=== PATIENT | male | born 1950 | race Caucasian/White ===

== ENCOUNTER → 2019-01-25 19:03 | Outpatient (REF) | payer MEDICARE, SELFPAY ==
[2019-01-25 19:31] LABS: Add Manual Diff / Slide Review NO; Basophils Absolute Auto 100 /uL (0-100); Basophils Percent Auto 1.2 % (0-2); Eosinophils Absolute Auto 200 /uL (0-450); Hematocrit 49.8 % (41-53); Hemoglobin 17.1 g/dL (13.5-17.5); Lymphocytes Absolute Auto 1900 /uL (1100-4500); Lymphocytes Percent Auto 27.1 % (25-40); Mean Corpuscular HGB Conc 34.4 % (30-36); Mean Corpuscular Volume 93.2 fL (80-100); Monocytes Absolute Auto 500 /uL (0-900); Monocytes Percent Auto 7.5 % (3-14); Neutrophils Absolute Auto 4400 /uL (1500-7000); Neutrophils Percent Auto 61.2 % (50-75); Platelet Count 195 X10^3/uL (150-400); Red Blood Cell Count 5.35 X10^6/uL (4.5-5.9); Red Cell Distribution Width 13.1 % (11.6-14.8); White Blood Cell Count 7.1 X10^3/uL (4.5-11.0)
[2019-01-25 19:35] LABS: Alanine Aminotransferase 84 IU/L (21-72); Albumin 4.3 g/dL (3.5-5.0); Albumin Globulin Ratio 1.6 (1.0-2.8); Alkaline Phosphatase 55 U/L (38-126); Aspartate Aminotransferase 55 IU/L (17-59); Bilirubin Total 0.8 mg/dL (0.2-1.3); Blood Urea Nitrogen 24 mg/dL (9-20); Calcium 9.5 mg/dL (8.4-10.2); Carbon Dioxide 30 mmol/L (22-32); Chloride 100 mmol/L (98-107); Cholesterol 158 mg/dL (140-199); Estimated Glomerular Filt Rate > 60.0 mL/min (>60); Globulin 2.7 g/dL (1.7-4.1); Glucose 101 mg/dL (80-110); HDL Cholesterol 36 mg/dL (40-60); HEMOLYSIS < 15 (0-50); LDL Cholesterol Calculated 84 mg/dL (<100); Potassium 4.5 mmol/L (3.4-5.1); Sodium 139 mmol/L (137-145); Triglycerides 189 mg/dL (35-150)
[2019-01-25 20:05] LABS: Thyroid Stimulating Hormone 2.75 uIU/mL (0.47-4.68)
[2019-01-25 20:23] LABS: Vitamin B12 390 pg/mL (239-931)
== END ==
LOC: LAB 19:03
PROVIDERS: Visit Provider Family Medicine Geriatric Medicine
DX: I50.9 Heart failure, unspecified (principal); M10.9 Gout, unspecified; R53.83 Other fatigue; E78.5 Hyperlipidemia, unspecified; Z79.899 Other long term (current) drug therapy
CPT/HCPCS: 36415; 80053; 80061; 82607; 84443; 84550; 85025

== ENCOUNTER → 2019-01-27 12:43 | Outpatient (CLI) | payer MEDICARE, SELFPAY ==
--- NOTE | 2019-01-27 | DI.US.S_ITS ---
PROCEDURE: US ARTERIAL DUPLEX LE BI INDICATIONS: ABSENT PULSES TECHNIQUE: Color and pulse Doppler interrogation was performed of both lower extremity arterial systems, with image documentation. COMPARISON: None. FINDINGS: Right lower extremity: Common femoral artery: 109 cm/s, with triphasic flow Deep femoral artery: 42 cm/sec, with triphasic flow. Proximal superficial femoral artery: 81 cm/sec, with triphasic flow. Mid superficial femoral artery: 93 cm/sec, with triphasic flow. Distal superficial femoral artery: 79 cm/sec, with triphasic flow. Popliteal artery: 78 cm/sec, with triphasic flow. Posterior tibial artery: 119 cm/sec, with triphasic flow. Anterior tibial artery/dorsalis pedis: 55 cm/sec, with triphasic flow. Gomez-scale imaging description: Widely patent vessels Left lower extremity: Common femoral artery: 100 cm/sec, with triphasic flow. Deep femoral artery: 34 cm/sec, with biphasic flow. Proximal superficial femoral artery: 91 cm/sec, with triphasic flow. Mid superficial femoral artery: 90 cm/sec, with triphasic flow. Distal superficial femoral artery: 74 cm/sec, with triphasic flow. Popliteal artery: 67 cm/sec, with triphasic flow. Posterior tibial artery: 104 cm/sec, with triphasic flow. Anterior tibial artery/dorsalis pedis: 61 cm/sec, with triphasic flow. Gomez-scale imaging description: Widely patent vessels IMPRESSION: 1. No evidence of inflow disease, as evidenced by triphasic waveforms. 2. Wide patency of the arterial runoff from the inguinal ligaments to the ankles, with at least 2 vessel runoff present. Dictated by: Arturo Sewell M.D. on 01/27/2019 at 15:04 Approved by: Arturo Sewell M.D. on 01/27/2019 at 15:24
== END ==
PROVIDERS: Visit Provider Family Medicine Geriatric Medicine
DX: R60.0 Localized edema (principal); I50.9 Heart failure, unspecified; M79.672 Pain in left foot; M79.671 Pain in right foot
CPT/HCPCS: 93925

== ENCOUNTER 2019-04-23 01:29 | Emergency (ER) | payer MEDICARE, SELFPAY ==
[2019-04-23 01:36] VITALS: BP 110/82; PULSE 64; RESP 22; TEMP 36.4; O2SAT 97; BMI 34.4
--- NOTE | 2019-04-23 01:39 | DI.RAD.S_ITS ---
PROCEDURE: XR CHEST 2V INDICATIONS: shortness of breath TECHNIQUE: 2 views of the chest were acquired. COMPARISON: [facility], , CHEST 2 VIEW, 03/21/2011, 10:27. FINDINGS: Surgical changes and devices: None. Lungs and pleura: There is cephalization of the pulmonary vasculature and increased interstitial prominence. No pleural effusions or pneumothorax. Mediastinum: Mediastinal contours are normal. Heart size is normal. Bones and chest wall: No suspicious bony abnormalities. Soft tissues appear unremarkable. IMPRESSION: Acute CHF. Dictated by: Dawn Altamirano MD, PhD on 04/23/2019 at 8:52 Approved by: Dawn Altamirano MD, PhD on 04/23/2019 at 8:53
[2019-04-23 01:52] LABS: Add Manual Diff / Slide Review NO; Basophils Absolute Auto 200 /uL (0-100); Basophils Percent Auto 1.6 % (0-2); Eosinophils Absolute Auto 100 /uL (0-450); Eosinophils Percent Auto 1.4 % (2-4); Hemoglobin 16.5 g/dL (13.5-17.5); Lymphocytes Absolute Auto 3400 /uL (1100-4500); Lymphocytes Percent Auto 31.8 % (25-40); Mean Corpuscular HGB Conc 34.5 % (30-36); Mean Corpuscular Hemoglobin 32.7 PG (26-34); Mean Corpuscular Volume 94.7 fL (80-100); Monocytes Absolute Auto 800 /uL (0-900); Monocytes Percent Auto 7.3 % (3-14); Neutrophils Absolute Auto 6100 /uL (1500-7000); Neutrophils Percent Auto 57.9 % (50-75); Platelet Count 194 X10^3/uL (150-400); Red Blood Cell Count 5.07 X10^6/uL (4.5-5.9); White Blood Cell Count 10.6 X10^3/uL (4.5-11.0)
[2019-04-23 01:57] LABS: Alanine Aminotransferase 81 IU/L (21-72); Albumin 4.4 g/dL (3.5-5.0); Albumin Globulin Ratio 1.4 (1.0-2.8); Alkaline Phosphatase 52 U/L (38-126); Aspartate Aminotransferase 68 IU/L (17-59); Bilirubin Total 0.6 mg/dL (0.2-1.3); Blood Urea Nitrogen 48 mg/dL (9-20); Calcium 9.4 mg/dL (8.4-10.2); Carbon Dioxide 29 mmol/L (22-32); Chloride 98 mmol/L (98-107); Estimated Glomerular Filt Rate 33.2 mL/min (>60); Globulin 3.1 g/dL (1.7-4.1); Glucose 124 mg/dL (80-110); HEMOLYSIS < 15 (0-50); Potassium 4.4 mmol/L (3.4-5.1); Sodium 140 mmol/L (137-145); Total Protein 7.5 g/dL (6.3-8.2)
--- NOTE | 2019-04-23 02:10 | PC.NURSE ---
Dr Martinez at bedside now.
[2019-04-23 02:16] LABS: B Type Natriuretic Peptide 1060 (<100)
[2019-04-23 02:30] VITALS: BP 100/66; PULSE 135; RESP 18; O2SAT 93
[2019-04-23 02:38] VITALS: BP 106/70; PULSE 134
[2019-04-23] MEDS: dilTIAZem 5 MG/ML SDV 25 MG IV (02:38)
[2019-04-23] MEDS: FUROSEMIDE 100 MG/10 ML VIAL 80 MG IV (02:39)
--- NOTE | 2019-04-23 02:45 | ED.SOB ---
HPI - SOB/Dyspnea General Chief Complaint: Shortness of Breath/Dyspnea Stated Complaint: difficulty breathing Time Seen by Provider: 04/23/19 01:44 Source: patient and family Mode of arrival: ambulatory Limitations: no limitations History of Present Illness Patient presents the emergency department complaining of shortness of breath. This has been going on for some months, but has been worse over the last month. Patient states that he has not had any chest pain. No palpitations. No feeling as though his heart is racing. No headache. No syncope or near syncope. Patient denies any edema in his lower extremities. He states he has an appointment with a test operator a week from today, regarding the symptoms. He states he saw his primary care physician a couple of months ago, and had a chest x-ray done, which showed water in his lungs. The patient states that he was put on diuretics for this but ?they stopped working?. Patient is not known to have any other heart problems. No other complaints at this time. Related Data Allergies Allergy/AdvReac Type Severity Reaction Status Date / Time No Known Drug Allergies Allergy Verified 04/23/19 04:23 Review of Systems Constitutional Denies chills, Denies fever(s), Denies lethargy and Denies weakness Eyes Denies change in vision, Denies eye discharge, Denies irritation and Denies loss of vision ENT Ears, Nose, Mouth, and Throat: Denies change in voice, Denies neck pain and Denies sore throat Cardiovascular Denies chest pain, Denies irregular heart rhythm, Denies lightheadedness, Denies palpitations, Reports dyspnea, Reports dyspnea on exertion and Denies orthopnea Respiratory Denies cough, Reports dyspnea, Reports dyspnea on exertion and Denies wheezing Gastrointestinal Gastrointestinal: Denies abdominal pain, Denies change in bowel habits, Denies diarrhea, Denies nausea and Denies vomiting Genitourinary Denies hematuria, Denies flank pain, Denies urinary incontinence and Denies urinary urgency Musculoskeletal Denies neck pain Integumentary/Breasts Denies pruritus, Denies erythema, Denies rash and Denies wounds Neurologic Denies confusion, Denies loss of vision and Denies weakness Psychiatric Denies anxiety, Denies confusion, Denies depression, Denies homicidal ideation and Denies suicidal ideation Endocrine Denies palpitations Hematologic/Lymphatic Denies easy bruising Allergic/Immunologic Denies wheezing [facility] Medical History HTN (hypertension) (Acute) Surgical History No pertinent past surgical history (Acute) Social History Smoking Status: Never smoker Exam Initial Vital Signs Initial Vital Signs: Vital Signs Temperature 97.6 F 04/23/19 01:36 Pulse Rate 64 04/23/19 01:36 Respiratory Rate 22 04/23/19 01:36 Blood Pressure 110/82 04/23/19 01:36 Pulse Oximetry 97 04/23/19 01:36 Const General: cooperative and well developed Nutritional Appearance: well nourished Orientation: alert, awake, oriented x3 and not confused HENMT Head: normocephalic and atraumatic Ears: external ears normal and TM's normal bilaterally Nose: external nose normal and No nasal discharge Face and sinus: sinuses nontender, face symmetric, no sinus tenderness and No dry mucous membranes Mouth: oral mucosae normal and moist mucous membranes Teeth and gingiva: dentition normal Throat: tonsils normal and uvula midline Eyes General: appearance normal, both eyes and all related structures Eyelids: eyelids normal Conjunctivae: conjunctivae normal Sclera: sclerae normal Pupils: PERRL EOM: EOM intact bilaterally Neck Neck: normal visual inspection, trachea midline, No lymphadenopathy, No midline deformity and No JVD Lymphatic: No lymphedema Chest Chest: normal inspection of the chest Resp Effort & Inspection: normal respiratory effort, able to speak in complete sentences, no respiratory distress and no use of accessory muscles Auscultation: clear to auscultation bilaterally, no rales, no rhonchi and no wheezes Cardio Rate: tachycardic Rhythm: abnormal rhythm irregularly irregular Heart Sounds: no click, no gallops, no murmurs and no rubs Pulses: normal peripheral pulses GI Inspection: non-distended Palpation: soft, no hepatosplenomegaly, No guarding, No pulsatile mass and No tender Auscultation: normal bowel sounds Back/Spine/Pelvis Back: No CVA tenderness Cervical Spine: cervical ROM normal and No pain with cervical ROM Thoracic/Lumbar Spine: thoracic and lumbar spine normal to inspection Skin General: no rashes or lesions noted, No jaundice and No petechiae Neuro General: alert, oriented x3, gait normal and no focal motor deficits Speech: speech normal Extrem General: full ROM, no clubbing, cyanosis or edema, no pedal edema and no calf tenderness Psych Appearance: well kempt Mental Status: mental status grossly normal Attitude: cooperative Thought Content: normal and suicidality Judgment: judgment good Course Course Narrative: Patient was worked up with labs, EKG, and chest x-ray, and treated for his AFib with RVR with IV diltiazem. He was also given Lasix for what appeared to be CHF and pulmonary vascular congestion on the chest x-ray. Patient's BNP was found to be over 1000. Patient's heart rate did not respond at all to the diltiazem though the patient did become mildly hypotensive after the medication. He denied any symptoms with this. He was given a dose of IV digoxin, with only slight improvement in his heart rate to the mid 120s. Troponin had been added to the standard laboratory studies after I saw the patient, and had been pending. However, it did come back after the other labs and was found to be 0.14, which was within non ST-elevation DC range. The patient was given 324 mg of chewable aspirin in the emergency department. He was also given Plavix and a heparin bolus, and started on a heparin drip. I informed the patient that we would need to transfer him to a facility with inpatient Cardiology, and the patient and were agreeable. I spoke with Dr. Garzon, hospitalist on-call at [facility], as [facility] had been full, and he did accept the patient in transfer. Ryann [place]brook Orders Ordered: Discontinued Medications Aspirin (Aspirin Chew) 324 mg PO NOW ONE Stop: 04/23/19 03:32 Last Admin: 04/23/19 03:35 Dose: 324 mg Clopidogrel Bisulfate (Plavix) 600 mg PO NOW ONE Stop: 04/23/19 03:47 Last Admin: 04/23/19 03:56 Dose: 600 mg Digoxin (Lanoxin) 250 mcg IV NOW ONE Stop: 04/23/19 03:15 Last Admin: 04/23/19 03:20 Dose: 250 mcg Diltiazem HCl (Cardizem) 25 mg IV NOW ONE Stop: 04/23/19 02:33 Last Admin: 04/23/19 02:38 Dose: 25 mg Furosemide (Lasix) 80 mg IV NOW ONE Stop: 04/23/19 02:34 Last Admin: 04/23/19 02:39 Dose: 80 mg Heparin Sodium (Porcine) (Heparin) 5,000 unit IV NOW ONE Stop: 04/23/19 03:43 Last Admin: 04/23/19 03:56 Dose: 5,000 unit Heparin Sodium/Dextrose (Heparin Drip) 25,000 unit in 500 mls @ 26.889 mls/hr IV CONT AUSTYN; Protocol Last Admin: 04/23/19 04:02 Dose: Not Given Heparin Sodium/Dextrose (Heparin Drip) 25,000 unit in 500 mls @ 20 mls/hr IV CONT AUSTYN; Protocol Last Titration: 04/23/19 05:25 Dose: 1,000 units/hr, 20 mls/hr Titration: 04/23/19 05:25 Dose: 1,000 units/hr, 20 mls/hr Admin: 04/23/19 04:02 Dose: 1,000 units/hr, 20 mls/hr Vital Signs - 8 hr 04/23/19 01:36 04/23/19 02:30 04/23/19 02:38 Temperature 97.6 F Pulse Rate 64 135 H 134 H Respiratory Rate 22 18 Blood Pressure 110/82 106/70 Blood Pressure [Right Arm] 100/66 Pulse Oximetry 97 93 MDM - SOB/Dyspnea Medical Records Attestation: I reviewed the patient's medical records. Lab Data Attestation: I reviewed the patient's lab results. Result diagrams: 04/23/19 01:35 04/23/19 01:35 Lab Results 04/23/19 04/23/19 04/23/19 Range/Units 01:35 01:35 01:35 WBC 10.6 (4.5-11.0) X10^3/uL RBC 5.07 (4.5-5.9) X10^6/uL Hgb 16.5 (13.5-17.5) g/dL Hct 48.0 (41-53) % MCV 94.7 (80-100) fL MCH 32.7 (26-34) PG MCHC 34.5 (30-36) % RDW 13.0 (11.6-14.8) % Plt Count 194 (150-400) X10^3/uL Neut % (Auto) 57.9 (50-75) % Lymph % (Auto) 31.8 (25-40) % Dooly % (Auto) 7.3 (3-14) % Eos % (Auto) 1.4 L (2-4) % Baso % (Auto) 1.6 (0-2) % Neut # (Auto) 6100 (3265-3036) /uL Lymph # (Auto) 3400 (9295-3494) /uL D[place]y # (Auto) 800 (0-900) /uL Eos # (Auto) 100 (0-450) /uL Baso # (Auto) 200 H (0-100) /uL PT (10.1-12.7) SECONDS INR (0.9-1.3) APTT (26.4-36.2) SECONDS Sodium 140 (137-145) mmol/L Potassium 4.4 (3.4-5.1) mmol/L Chloride 98 (98-107) mmol/L Carbon Dioxide 29 (22-32) mmol/L BUN 48 H (9-20) mg/dL Creatinine 2.00 H (0.66-1.25) mg/dL Estimated GFR 33.2 L (>60) mL/min BUN/Creatinine Ratio 24.0 H (6-22) Glucose 124 H (80-110) mg/dL Calcium 9.4 (8.4-10.2) mg/dL Total Bilirubin 0.6 (0.2-1.3) mg/dL AST 68 H (17-59) IU/L ALT 81 H (21-72) IU/L Alkaline Phosphatase 52 (38-126) U/L Total Creatine Kinase (55-170) U/L CK-MB (CK-2) (<2.37) ng/mL CK-MB (CK-2) Rel Index (1.5-5.0) % Troponin I (0.01-0.034) ng/mL B-Natriuretic Peptide 1060 H (<100) Total Protein 7.5 (6.3-8.2) g/dL Albumin 4.4 (3.5-5.0) g/dL Globulin 3.1 (1.7-4.1) g/dL Albumin/Globulin Ratio 1.4 (1.0-2.8) 04/23/19 04/23/19 Range/Units 01:35 01:35 WBC (4.5-11.0) X10^3/uL RBC (4.5-5.9) X10^6/uL Hgb (13.5-17.5) g/dL Hct (41-53) % MCV (80-100) fL MCH (26-34) PG MCHC (30-36) % RDW (11.6-14.8) % Plt Count (150-400) X10^3/uL Neut % (Auto) (50-75) % Lymph % (Auto) (25-40) % Dooly % (Auto) (3-14) % Eos % (Auto) (2-4) % Baso % (Auto) (0-2) % Neut # (Auto) (7524-9060) /uL Lymph # (Auto) (5448-6155) /uL Dooly # (Auto) (0-900) /uL Eos # (Auto) (0-450) /uL Baso # (Auto) (0-100) /uL PT 13.9 H (10.1-12.7) SECONDS INR 1.2 (0.9-1.3) APTT 32 (26.4-36.2) SECONDS Sodium (137-145) mmol/L Potassium (3.4-5.1) mmol/L Chloride (98-107) mmol/L Carbon Dioxide (22-32) mmol/L BUN (9-20) mg/dL Creatinine (0.66-1.25) mg/dL Estimated GFR (>60) mL/min BUN/Creatinine Ratio (6-22) Glucose (80-110) mg/dL Calcium (8.4-10.2) mg/dL Total Bilirubin (0.2-1.3) mg/dL AST (17-59) IU/L ALT (21-72) IU/L Alkaline Phosphatase (38-126) U/L Total Creatine Kinase 101 (55-170) U/L CK-MB (CK-2) 2.74 H (<2.37) ng/mL CK-MB (CK-2) Rel Index 2.7 (1.5-5.0) % Troponin I 0.149 H* (0.01-0.034) ng/mL B-Natriuretic Peptide (<100) Total Protein (6.3-8.2) g/dL Albumin (3.5-5.0) g/dL Globulin (1.7-4.1) g/dL Albumin/Globulin Ratio (1.0-2.8) Imaging Data Chest x-ray: Radiologist's impression: PROCEDURE: XR CHEST 2V INDICATIONS: shortness of breath TECHNIQUE: 2 views of the chest were acquired. COMPARISON: [facility], , CHEST 2 VIEW, 03/21/2011, 10:27. FINDINGS: Surgical changes and devices: None. Lungs and pleura: There is cephalization of the pulmonary vasculature and increased interstitial prominence. No pleural effusions or pneumothorax. Mediastinum: Mediastinal contours are normal. Heart size is normal. Bones and chest wall: No suspicious bony abnormalities. Soft tissues appear unremarkable. IMPRESSION: Acute CHF. Dictated by: Dawn Altamirano MD, PhD on 04/23/2019 at 8:52 Approved by: Dawn Altamirano MD, PhD on 04/23/2019 at 8:53 ECG Data Attestation: I personally reviewed and interpreted this ECG as follows: (See below) Interpretation: Twelve lead EKG performed April 15, 2019 at 1:33 a.m., as follows: Irregular ventricular rhythm with a rate of 136 beats per minute P waves and WA interval undetectable QRS duration 142nd millisecond QTC interval [address] T wave changes Interpretation: Atrial flutter with rapid ventricular response; right bundle-branch block; left anterior fascicular block; no signs of acute ischemia; abnormal EKG as interpreted by ED MD. Critical Care Time Critical Care Time: Yes Total Critical Care Time: 35 Attestation: Critical care time was necessary, due to high probability of imminent decline and . Critical care time is exclusive of separately billable procedures. Critical care time included: Interviewing and examining the patient, ordering and reviewing laboratory studies, ordering and reviewing imaging studies, evaluating cardiac output, [evaluating oxygen saturation], discussion with consultants, discussion with family, re-examining the patient, and documentation. Discharge Plan Departure Patient Disposition: [facility] Clinical Impression: Non-ST elevation (NSTEMI) myocardial infarction, Atrial flutter with rapid ventricular response CHF (congestive heart failure) Qualifiers: Heart failure type: unspecified Heart failure chronicity: acute on chronic Qualified Code(s): I50.9 - Heart failure, unspecified Discharge Date/Time: 04/23/19 05:25 Interventions: ED Discharge Assessment Last Done: 04/23/19 05:25
--- NOTE | 2019-04-23 02:49 | ED_ITS ---
HPI - SOB/Dyspnea General Chief Complaint: Shortness of Breath/Dyspnea Stated Complaint: difficulty breathing Time Seen by Provider: 04/23/19 01:44 Source: patient and family Mode of arrival: ambulatory Limitations: no limitations History of Present Illness Patient presents the emergency department complaining of shortness of breath. This has been going on for some months, but has been worse over the last month. Patient states that he has not had any chest pain. No palpitations. No feeling as though his heart is racing. No headache. No syncope or near syncope. Patient denies any edema in his lower extremities. He states he has an appointment with a scale balancer a week from today, regarding the symptoms. He states he saw his primary care physician a couple of months ago, and had a chest x-ray done, which showed water in his lungs. The patient states that he was put on diuretics for this but ?they stopped working?. Patient is not known to have any other heart problems. No other complaints at this time. Related Data Allergies Allergy/AdvReac Type Severity Reaction Status Date / Time No Known Drug Allergies Allergy Verified 04/23/19 04:23 Review of Systems Constitutional Denies chills, Denies fever(s), Denies lethargy and Denies weakness Eyes Denies change in vision, Denies eye discharge, Denies irritation and Denies loss of vision ENT Ears, Nose, Mouth, and Throat: Denies change in voice, Denies neck pain and Denies sore throat Cardiovascular Denies chest pain, Denies irregular heart rhythm, Denies lightheadedness, Denies palpitations, Reports dyspnea, Reports dyspnea on exertion and Denies orthopnea Respiratory Denies cough, Reports dyspnea, Reports dyspnea on exertion and Denies wheezing Gastrointestinal Gastrointestinal: Denies abdominal pain, Denies change in bowel habits, Denies diarrhea, Denies nausea and Denies vomiting Genitourinary Denies hematuria, Denies flank pain, Denies urinary incontinence and Denies urinary urgency Musculoskeletal Denies neck pain Integumentary/Breasts Denies pruritus, Denies erythema, Denies rash and Denies wounds Neurologic Denies confusion, Denies loss of vision and Denies weakness Psychiatric Denies anxiety, Denies confusion, Denies depression, Denies homicidal ideation and Denies suicidal ideation Endocrine Denies palpitations Hematologic/Lymphatic Denies easy bruising Allergic/Immunologic Denies wheezing [facility] Medical History HTN (hypertension) (Acute) Surgical History No pertinent past surgical history (Acute) Social History Smoking Status: Never smoker Exam Initial Vital Signs Initial Vital Signs: Vital Signs Temperature 97.6 F 04/23/19 01:36 Pulse Rate 64 04/23/19 01:36 Respiratory Rate 22 04/23/19 01:36 Blood Pressure 110/82 04/23/19 01:36 Pulse Oximetry 97 04/23/19 01:36 Const General: cooperative and well developed Nutritional Appearance: well nourished Orientation: alert, awake, oriented x3 and not confused HENMT Head: normocephalic and atraumatic Ears: external ears normal and TM's normal bilaterally Nose: external nose normal and No nasal discharge Face and sinus: sinuses nontender, face symmetric, no sinus tenderness and No dry mucous membranes Mouth: oral mucosae normal and moist mucous membranes Teeth and gingiva: dentition normal Throat: tonsils normal and uvula midline Eyes General: appearance normal, both eyes and all related structures Eyelids: eyelids normal Conjunctivae: conjunctivae normal Sclera: sclerae normal Pupils: PERRL EOM: EOM intact bilaterally Neck Neck: normal visual inspection, trachea midline, No lymphadenopathy, No midline deformity and No JVD Lymphatic: No lymphedema Chest Chest: normal inspection of the chest Resp Effort & Inspection: normal respiratory effort, able to speak in complete sentences, no respiratory distress and no use of accessory muscles Auscultation: clear to auscultation bilaterally, no rales, no rhonchi and no wheezes Cardio Rate: tachycardic Rhythm: abnormal rhythm irregularly irregular Heart Sounds: no click, no gallops, no murmurs and no rubs Pulses: normal peripheral pulses GI Inspection: non-distended Palpation: soft, no hepatosplenomegaly, No guarding, No pulsatile mass and No tender Auscultation: normal bowel sounds Back/Spine/Pelvis Back: No CVA tenderness Cervical Spine: cervical ROM normal and No pain with cervical ROM Thoracic/Lumbar Spine: thoracic and lumbar spine normal to inspection Skin General: no rashes or lesions noted, No jaundice and No petechiae Neuro General: alert, oriented x3, gait normal and no focal motor deficits Speech: speech normal Extrem General: full ROM, no clubbing, cyanosis or edema, no pedal edema and no calf tenderness Psych Appearance: well kempt Mental Status: mental status grossly normal Attitude: cooperative Thought Content: normal and suicidality Judgment: judgment good Course Course Narrative: Patient was worked up with labs, EKG, and chest x-ray, and t reated for his AFib with RVR with IV diltiazem. He was also given Lasix for what appeared to be CHF and pulmonary vascular congestion on the chest x-ray. Patient's BNP was found to be over 1000. Patient's heart rate did not respond at all to the diltiazem though the patient did become mildly hypotensive after the medication. He denied any symptoms with this. He was given a dose of IV digoxin, with only slight improvement in his heart rate to the mid 120s. Troponin had been added to the standard laboratory studies after I saw the patient, and had been pending. However, it did come back after the other labs and was found to be 0.14, which was within non ST-elevation [place] range. The patient was given 324 mg of chewable aspirin in the emergency department. He was also given Plavix and a heparin bolus, and started on a heparin drip. I informed the patient that we would need to transfer him to a facility with inpatient Cardiology, and the patient and were agreeable. I spoke with Dr. Garzon, hospitalist on-call at [facility], as [facility] had been full, and he did accept the patient in transfer. Ry[facility] [place] Orders Ordered: Discontinued Medications Aspirin (Aspirin Chew) 324 mg PO NOW ONE Stop: 04/23/19 03:32 Last Admin: 04/23/19 03:35 Dose: 324 mg Clopidogrel Bisulfate (Plavix) 600 mg PO NOW ONE Stop: 04/23/19 03:47 Last Admin: 04/23/19 03:56 Dose: 600 mg Digoxin (Lanoxin) 250 mcg IV NOW ONE Stop: 04/23/19 03:15 Last Admin: 04/23/19 03:20 Dose: 250 mcg Diltiazem HCl (Cardizem) 25 mg IV NOW ONE Stop: 04/23/19 02:33 Last Admin: 04/23/19 02:38 Dose: 25 mg Furosemide (Lasix) 80 mg IV NOW ONE Stop: 04/23/19 02:34 Last Admin: 04/23/19 02:39 Dose: 80 mg Heparin Sodium (Porcine) (Heparin) 5,000 unit IV NOW ONE Stop: 04/23/19 03:43 Last Admin: 04/23/19 03:56 Dose: 5,000 unit Heparin Sodium/Dextrose (Heparin Drip) 25,000 unit in 500 mls @ 26.889 mls/hr IV CONT AUSTYN; Protocol Last Admin: 04/23/19 04:02 Dose: Not Given Heparin Sodium/Dextrose (Heparin Drip) 25,000 unit in 500 mls @ 20 mls/hr IV CONT AUSTYN; Protocol Last Titration: 04/23/19 05:25 Dose: 1,000 units/hr, 20 mls/hr Titration: 04/23/19 05:25 Dose: 1,000 units/hr, 20 mls/hr Admin: 04/23/19 04:02 Dose: 1,000 units/hr, 20 mls/hr Vital Signs - 8 hr 04/23/19 01:36 04/23/19 02:30 04/23/19 02:38 Temperature 97.6 F Pulse Rate 64 135 H 134 H Respiratory Rate 22 18 Blood Pressure 110/82 106/70 Blood Pressure [Right Arm] 100/66 Pulse Oximetry 97 93 MDM - SOB/Dyspnea Medical Records Attestation: I reviewed the patient's medical records. Lab Data Attestation: I reviewed the patient's lab results. Result diagrams: 04/23/19 01:35 04/23/19 01:35 Lab Results 04/23/19 04/23/19 04/23/19 Range/Units 01:35 01:35 01:35 WBC 10.6 (4.5-11.0) X10^3/uL RBC 5.07 (4.5-5.9) X10^6/uL Hgb 16.5 (13.5-17.5) g/dL Hct 48.0 (41-53) % MCV 94.7 (80-100) fL MCH 32.7 (26-34) PG MCHC 34.5 (30-36) % RDW 13.0 (11.6-14.8) % Plt Count 194 (150-400) X10^3/uL Neut % (Auto) 57.9 (50-75) % Lymph % (Auto) 31.8 (25-40) % Brown % (Auto) 7.3 (3-14) % Eos % (Auto) 1.4 L (2-4) % Baso % (Auto) 1.6 (0-2) % Neut # (Auto) 6100 (3375-1925) /uL Lymph # (Auto) 3400 (9685-4402) /uL Brown # (Auto) 800 (0-900) /uL Eos # (Auto) 100 (0-450) /uL Baso # (Auto) 200 H (0-100) /uL PT (10.1-12.7) SECONDS INR (0.9-1.3) APTT (26.4-36.2) SECONDS Sodium 140 (137-145) mmol/L Potassium 4.4 (3.4-5.1) mmol/L Chloride 98 (98-107) mmol/L Carbon Dioxide 29 (22-32) mmol/L BUN 48 H (9-20) mg/dL Creatinine 2.00 H (0.66-1.25) mg/dL Estimated GFR 33.2 L (>60) mL/min BUN/Creatinine Ratio 24.0 H (6-22) Glucose 124 H (80-110) mg/dL Calcium 9.4 (8.4-10.2) mg/dL Total Bilirubin 0.6 (0.2-1.3) mg/dL AST 68 H (17-59) IU/L ALT 81 H (21-72) IU/L Alkaline Phosphatase 52 (38-126) U/L Total Creatine Kinase (55-170) U/L CK-MB (CK-2) (<2.37) ng/mL CK-MB (CK-2) Rel Index (1.5-5.0) % Troponin I (0.01-0.034) ng/mL B-Natriuretic Peptide 1060 H (<100) Total Protein 7.5 (6.3-8.2) g/dL Albumin 4.4 (3.5-5.0) g/dL Globulin 3.1 (1.7-4.1) g/dL Albumin/Globulin Ratio 1.4 (1.0-2.8) 04/23/19 04/23/19 Range/Units 01:35 01:35 WBC (4.5-11.0) X10^3/uL RBC (4.5-5.9) X10^6/uL Hgb (13.5-17.5) g/dL Hct (41-53) % MCV (80-100) fL MCH (26-34) PG MCHC (30-36) % RDW (11.6-14.8) % Plt Count (150-400) X10^3/uL Neut % (Auto) (50-75) % Lymph % (Auto) (25-40) % Brown % (Auto) (3-14) % Eos % (Auto) (2-4) % Baso % (Auto) (0-2) % Neut # (Auto) (7120-9162) /uL Lymph # (Auto) (5017-5981) /uL Brown # (Auto) (0-900) /uL Eos # (Auto) (0-450) /uL Baso # (Auto) (0-100) /uL PT 13.9 H (10.1-12.7) SECONDS INR 1.2 (0.9-1.3) APTT 32 (26.4-36.2) SECONDS Sodium (137-145) mmol/L Potassium (3.4-5.1) mmol/L Chloride (98-107) mmol/L Carbon Dioxide (22-32) mmol/L BUN (9-20) mg/dL Creatinine (0.66-1.25) mg/dL Estimated GFR (>60) mL/min BUN/Creatinine Ratio (6-22) Glucose (80-110) mg/dL Calcium (8.4-10.2) mg/dL Total Bilirubin (0.2-1.3) mg/dL AST (17-59) IU/L ALT (21-72) IU/L Alkaline Phosphatase (38-126) U/L Total Creatine Kinase 101 (55-170) U/L CK-MB (CK-2) 2.74 H (<2.37) ng/mL CK-MB (CK-2) Rel Index 2.7 (1.5-5.0) % Troponin I 0.149 H* (0.01-0.034) ng/mL B-Natriuretic Peptide (<100) Total Protein (6.3-8.2) g/dL Albumin (3.5-5.0) g/dL Globulin (1.7-4.1) g/dL Albumin/Globulin Ratio (1.0-2.8) Imaging Data Chest x-ray: Radiologist's impression: PROCEDURE: XR CHEST 2V INDICATIONS: shortness of breath TECHNIQUE: 2 views of the chest were acquired. COMPARISON: [facility], , CHEST 2 VIEW, 03/21/2011, 10:27. FINDINGS: Surgical changes and devices: None. Lungs and pleura: There is cephalization of the pulmonary vasculature and increased interstitial prominence. No pleural effusions or pneumothorax. Mediastinum: Mediastinal contours are normal. Heart size is normal. Bones and chest wall: No suspicious bony abnormalities. Soft tissues appear unremarkable. IMPRESSION: Acute CHF. Dictated by: Dawn Altamirano MD, PhD on 04/23/2019 at 8:52 Approved by: Dawn Altamirano MD, PhD on 04/23/2019 at 8:53 ECG Data Attestation: I personally reviewed and interpreted this ECG as follows: (See below) Interpretation: Twelve lead EKG performed April 15, 2019 at 1:33 a.m., as follows: Irregular ventricular rhythm with a rate of 136 beats per minute P waves and DE interval undetectable QRS duration 142nd millisecond QTC interval [address] T wave changes Interpretation: Atrial flutter with rapid ventricular response; right bundle- branch block; left anterior fascicular block; no signs of acute ischemia; abnormal EKG as interpreted by ED MD. Critical Care Time Critical Care Time: Yes Total Critical Care Time: 35 Attestation: Critical care time was necessary, due to high probability of imminent decline and . Critical care time is exclusive of separately billable procedures. Critical care time included: Interviewing and examining the patient, ordering and reviewing laboratory studies, ordering and reviewing imaging studies, evaluating cardiac output, [evaluating oxygen saturation], discussion with consultants, discussion with family, re-examining the patient, and documentation. Discharge Plan Departure Patient Disposition: [facility] Clinical Impression: Non-ST elevation (NSTEMI) myocardial infarction, Atrial flutter with rapid v entricular response CHF (congestive heart failure) Qualifiers: Heart failure type: unspecified Heart failure chronicity: acute on chronic Qualified Code(s): I50.9 - Heart failure, unspecified Discharge Date/Time: 04/23/19 05:25 Interventions: ED Discharge Assessment Last Done: 04/23/19 05:25
[2019-04-23 02:54] LABS: Creatine Kinase 101 U/L (55-170)
[2019-04-23 03:10] LABS: CKMB % Relative Index 2.7 % (1.5-5.0); Creatine Kinase MB 2.74 ng/mL (<2.37)
[2019-04-23 03:20] VITALS: BP 96/72; PULSE 128
[2019-04-23] MEDS: DIGOXIN 500 MCG/2 ML AMPUL 250 MCG IV (03:20)
[2019-04-23 03:30] LABS: Troponin I 0.149 ng/mL (0.01-0.034)
--- NOTE | 2019-04-23 03:30 | PC.NURSE ---
Pt states shortness of breath for past 3 weeks, denies pain. Pt saw PCP a couple months ago and was told he had fluid in his lungs and placed on diuretics that stopped working and was told he may have CHF and to follow up with a boilermaker pipe fitter appt which is scheduled in a week. Pt states hx of HTN and denies other cardiac problems.
[2019-04-23] MEDS: ASPIRIN 81 MG TAB 324 MG PO (03:35)
[2019-04-23] MEDS: HEPARIN 5,000 UNIT/ML VIAL 5000 UNIT IV (03:56)
[2019-04-23] MEDS: CLOPIDOGREL 75 MG TABLET 600 MG PO (03:56)
[2019-04-23 04:00] VITALS: BP 104/79; PULSE 127; RESP 19; O2SAT 93
[2019-04-23] MEDS: HEPARIN DRIP 25,000 UNIT/500 ML IV.SOLN 20 UNIT IV (04:02)
[2019-04-23 04:12] LABS: INR 1.2 (0.9-1.3); Prothrombin Time 13.9 SECONDS (10.1-12.7)
[2019-04-23 04:14] LABS: PTT Partial Thromboplastin Tim 32 SECONDS (26.4-36.2)
[2019-04-23 04:31] VITALS: BP 112/80; PULSE 126; RESP 20; O2SAT 93
== END 2019-04-23 05:25 | disposition short-term general hospital (02) ==
PROVIDERS: Emergency Provider Emergency Medicine
DX: I21.4 Non-ST elevation (NSTEMI) myocardial infarction (principal); I50.9 Heart failure, unspecified
CPT/HCPCS: 36591; 71046; 80053; 82550; 82553; 83880; 84484; 85025; 85610; 85730; 93005; 93010; 96365; 96375; 99284; 99285; J1160; J1644; J1940

== ENCOUNTER → 2019-07-22 10:42 | Outpatient (CLI) | payer MEDICARE, SELFPAY ==
--- NOTE | 2019-07-26 14:19 | PM.PFT.1 ---
Pulmonary Function Test Referral & Results Date Patient Seen: 07/22/19 Requesting provider: Aaron Amanda Results: The spirometry demonstrates an FVC of 3.39 L which is 74% of predicted. The FEV1 was measured at 2.68 L which is 79% of predicted. The FEV1/FVC ratio was 79 which is 106% of predicted. Following the administration of bronchodilator there was no appreciable change. Lung volumes show an SVC of 3.78 L which is 80% of predicted. The diffusing capacity was measured at 21.63 which is 64% of predicted. No hemoglobin value was provided, so no correction for potential anemia could be made, if appropriate. The maximum voluntary ventilation was normal Interpretation: This study demonstrates mild obstructive lung disease based on slight reduction in FEV1 without evidence of benefit following bronchodilator There also may be mild restrictive lung disease based on minimal reduction in SVC There is more significant reduction in diffusing capacity suggesting more significant disease at the capillary alveolar level Clinical correlation suggested
== END ==
PROVIDERS: PCP Internal Medicine; Visit Provider Nurse Practitioner
DX: I50.22 Chronic systolic (congestive) heart failure (principal); J98.8 Other specified respiratory disorders
CPT/HCPCS: 94060; 94726; 94729

== ENCOUNTER → 2023-07-29 14:00 | Outpatient (CLI) | payer MEDICARE, SELFPAY ==
[2023-07-29 15:36] LABS: Clostridium Difficile Tox PCR Negative for C. diff (Negative)
== END ==
PROVIDERS: PCP Student in an Organized Health Care Education/Training Program; Referring Provider Specialist; Visit Provider Specialist
DX: N13.8 Other obstructive and reflux uropathy (principal); N40.3 Nodular prostate with lower urinary tract symptoms
CPT/HCPCS: 87493

== ENCOUNTER → 2023-07-30 09:16 | Outpatient (CLI) | payer MEDICARE, SELFPAY | PROVIDERS: PCP Student in an Organized Health Care Education/Training Program; Visit Provider Specialist | DX: N40.1 Benign prostatic hyperplasia with lower urinary tract symptoms (principal); N13.8 Other obstructive and reflux uropathy; R33.9 Retention of urine, unspecified | CPT/HCPCS: 51702; 87086 ==